=== PATIENT | female | born 1980 | race Caucasian/White ===

== ENCOUNTER 2021-09-23 00:12 | Emergency (ER) | payer MEDICAID ==
[~2021-09-23] VITALS: Ht 160 cm; Wt 77.0 kg
[2021-09-23] MEDS ORDERED: MORPHINE SULFATE 4 MG/ML CPJ (NOT FOR IM USE) IV STA (02:27)
[2021-09-23] MEDS ORDERED: ONDANSETRON HCL 4MG/2ML INJ IV STA (02:27)
[2021-09-23] MEDS ORDERED: SODIUM CHLORIDE 0.9% 1,000 ML IV ONE (02:30)
[2021-09-23 02:44] LABS: BASOPHILS % 0.8 % (0.0-2.0); HEMOGLOBIN. 12.4 g/dL (12.0-16.0); LYMPHOCYTES % 14.8 % (20.0-50.0); MEAN CORPUSCULAR HEMOGLOBIN 27.2 pg (28.0-32.0); MEAN CORPUSCULAR VOLUME 80.9 fL (81.0-99.0); MEAN PLATELET VOLUME 8.1 fl (7.4-10.4); MONOCYTES % 6.7 % (2.0-8.0); NEUTROPHILS % 75.7 % (40.0-76.0); PLATELET 262 x1000/uL (130-400); RED BLOOD CELL COUNT 4.58 mill/uL (4.2-5.4)
[2021-09-23 02:51] LABS: CHLORIDE 110 mEq/L (98-107)
[2021-09-23 02:53] LABS: HCG SCREEN NEGATIVE
[2021-09-23] MEDS ORDERED: KETOROLAC 15MG/ML VIAL IV NR (04:45)
[2021-09-23] MEDS ORDERED: NAPR-681 MT (05:06)
[2021-09-23 05:18] LABS: CLARITY URINE CLEAR (CLEAR); COLOR URINE YELLOW (YELLOW); KETONES URINE NEGATIVE (NEGATIVE); LEUKOCYTE ESTERASE URINE NEGATIVE (NEGATIVE); NITRITE URINE NEGATIVE (NEGATIVE); OCCULT BLOOD URINE TRACE (NEGATIVE); PH URINE 6.5 (4.5-8.0); PROTEIN URINE NEGATIVE (NEGATIVE); SPECIFIC GRAVITY URINE 1.009 (1.005-1.030); UROBILINOGEN URINE 0.2 E.U./dL (0.2-1.0)
[2021-09-23 06:21] VITALS: BP 94/51
[2021-09-23] MEDS ORDERED: IOHEXOL-300 100 ML BOTTLE ONE (06:28)
== END 2021-09-23 06:49 | disposition home or self-care (01) ==
LOC: ER 00:12
DX: R10.2 Pelvic and perineal pain (principal)
CPT/HCPCS: 36415; 74177; 76856; 80053; 81003; 83690; 84703; 85025; 93005; 96361; 96374; 96375; 99285; J1885; J2270; J2405; J7030; Q9967; Z7610